=== PATIENT | female | born 1955 | race Caucasian/White ===

== ENCOUNTER 2016-11-23 17:59 | Emergency (ER) | payer OTHER ==
[~2016-11-23] VITALS: Ht 162.6 cm; Wt 81.7 kg
[2016-11-23] MEDS ORDERED: TESTOSTERONE5 G1 TD (18:04)
[2016-11-23 20:19] VITALS: BP 165/100
== END 2016-11-23 20:22 | disposition home or self-care (01) ==
LOC: ER 17:59
DX: S61.212A Laceration without foreign body of right middle finger without damage to nail, initial encounter (principal); W23.0XXA Caught, crushed, jammed, or pinched between moving objects, initial encounter; Y93.89 Activity, other specified; Y92.89 Other specified places as the place of occurrence of the external cause; Y99.9 Unspecified external cause status